=== PATIENT | male | born 1950 | race Caucasian/White ===

== ENCOUNTER → 2023-11-24 09:00 | Outpatient (REF) | payer MEDICARE, OTHER, SELFPAY | LOC: DHSLP 09:00 | PROVIDERS: ATTENDING PHYSICIAN Internal Medicine; FAMILY PHYSICIAN Family Medicine | DX: G47.33 Obstructive sleep apnea (adult) (pediatric) (principal) | CPT/HCPCS: 95800 ==

== ENCOUNTER → 2024-01-29 07:04 | Outpatient (REF) | payer MEDICARE, OTHER, SELFPAY ==
[2024-01-29 08:02] LABS: Protein/creatinine Ratio 0.3; Urine Protein 16 mg/dl
[2024-01-29 08:32] LABS: Albumin 4.2 g/dl (3.5-5.0); Blood Urea Nitrogen 33 mg/dl (9-20); Calcium 9.5 mg/dl (8.4-10.2); Carbon Dioxide 21 mmol/L (22-30); Chloride 107 mmol/L (98-107); Glucose 98 mg/dl (70-99); Potassium 4.8 mmol/L (3.5-5.1); Sodium 136 mmol/L (135-145); eGFR 26.63
[2024-01-30 12:14] LABS: Intact PTH 80.5 pg/ml (13.6-85.8)
== END ==
LOC: REG 07:04
PROVIDERS: ATTENDING PHYSICIAN Internal Medicine; FAMILY PHYSICIAN Family Medicine
DX: N18.4 Chronic kidney disease, stage 4 (severe) (principal); I10 Essential (primary) hypertension; E87.5 Hyperkalemia; N25.81 Secondary hyperparathyroidism of renal origin
CPT/HCPCS: 36415; 80069; 82570; 83970; 84156

== ENCOUNTER → 2024-04-22 10:20 | Outpatient (REF) | payer MEDICARE, OTHER, SELFPAY ==
[2024-04-22 11:59] LABS: Albumin 4.2 g/dl (3.5-5.0); Blood Urea Nitrogen 46 mg/dl (9-20); Calcium 9.6 mg/dl (8.4-10.2); Carbon Dioxide 19 mmol/L (22-30); Chloride 106 mmol/L (98-107); Glucose 111 mg/dl (70-99); Phosphorus 4.5 mg/dl (2.5-4.5); Potassium 5.3 mmol/L (3.5-5.1); Sodium 135 mmol/L (135-145); eGFR 24.28
[2024-04-23 21:55] LABS: Angiotensin-1-converting Enzym 40 U/L (16-85)
[2024-04-24 02:38] LABS: Vitamin D 1,25 Dihydroxy 31.7 pg/mL (19.9-79.3)
== END ==
LOC: REG 10:20
PROVIDERS: ATTENDING PHYSICIAN Internal Medicine; FAMILY PHYSICIAN Family Medicine
DX: N18.4 Chronic kidney disease, stage 4 (severe) (principal); E67.3 Hypervitaminosis D
CPT/HCPCS: 36415; 80069; 82164; 82306; 82652

== ENCOUNTER → 2024-07-12 12:03 | Outpatient (REF) | payer MEDICARE, OTHER, SELFPAY ==
[2024-07-12 12:48] LABS: Hematocrit 37.8 % (39.0-52.0); Hemoglobin 12.7 g/dL (13.0-18.0); Mean Corp Hgb Conc. 33.6 g/dL (33.0-37.0); Mean Corpuscular Volume 92.2 fL (80.0-94.0); Platelet Count 292 10^3/uL (130-400); Red Cell Dist. Width 14.4 % (11.5-14.5); White Blood Cell Count 6.7 10^3/uL (4.8-10.8)
[2024-07-12 13:00] LABS: Albumin 4.4 g/dl (3.5-5.0); Blood Urea Nitrogen 31 mg/dl (9-20); Calcium 9.8 mg/dl (8.4-10.2); Carbon Dioxide 22 mmol/L (22-30); Chloride 102 mmol/L (98-107); Glucose 98 mg/dl (70-99); Phosphorus 3.6 mg/dl (2.5-4.5); Potassium 4.7 mmol/L (3.5-5.1); Sodium 138 mmol/L (135-145)
[2024-07-12 15:10] LABS: Urine Protein 23 mg/dl (0-12)
[2024-07-14 11:00] LABS: Intact PTH 102.3 pg/ml (13.6-85.8)
== END ==
LOC: REG 12:03
PROVIDERS: ATTENDING PHYSICIAN Internal Medicine; FAMILY PHYSICIAN Family Medicine
DX: E67.3 Hypervitaminosis D (principal); N18.4 Chronic kidney disease, stage 4 (severe)
CPT/HCPCS: 36415; 80069; 82570; 83519; 83970; 84156; 85027

== ENCOUNTER → 2024-08-23 13:52 | Outpatient (REF) | payer MEDICARE, OTHER, SELFPAY ==
[2024-08-23 15:23] LABS: Albumin 4.3 g/dl (3.5-5.0); Blood Urea Nitrogen 44 mg/dl (9-20); Calcium 9.6 mg/dl (8.4-10.2); Carbon Dioxide 22 mmol/L (22-30); Chloride 104 mmol/L (98-107); Glucose 100 mg/dl (70-99); Phosphorus 4.3 mg/dl (2.5-4.5); Potassium 4.9 mmol/L (3.5-5.1); Sodium 141 mmol/L (135-145)
== END ==
LOC: REG 13:52
PROVIDERS: ATTENDING PHYSICIAN Internal Medicine; FAMILY PHYSICIAN Family Medicine
DX: N18.4 Chronic kidney disease, stage 4 (severe) (principal); I10 Essential (primary) hypertension
CPT/HCPCS: 36415; 80069

== ENCOUNTER → 2024-09-29 17:03 | Outpatient (REF) | payer MEDICARE, OTHER, SELFPAY | LOC: RAD 17:03 | PROVIDERS: ATTENDING PHYSICIAN Internal Medicine; FAMILY PHYSICIAN Family Medicine | DX: N18.4 Chronic kidney disease, stage 4 (severe) (principal) | CPT/HCPCS: 76770 ==

== ENCOUNTER → 2024-12-01 11:12 | Outpatient (REF) | payer MEDICARE, OTHER, SELFPAY ==
[2024-12-01 13:02] LABS: Albumin 4.3 g/dl (3.5-5.0); Blood Urea Nitrogen 43 mg/dl (9-20); Calcium 9.4 mg/dl (8.4-10.2); Carbon Dioxide 20 mmol/L (22-30); Chloride 103 mmol/L (98-107); Glucose 95 mg/dl (70-99); Phosphorus 4.6 mg/dl (2.5-4.5); Potassium 5.1 mmol/L (3.5-5.1); Sodium 136 mmol/L (135-145)
[2024-12-03 04:22] LABS: Vitamin D 1,25 Dihydroxy 26.1 pg/mL (19.9-79.3)
== END ==
LOC: REG 11:12
PROVIDERS: ATTENDING PHYSICIAN Internal Medicine; FAMILY PHYSICIAN Family Medicine
DX: N25.81 Secondary hyperparathyroidism of renal origin (principal); E67.3 Hypervitaminosis D
CPT/HCPCS: 36415; 80069; 82306; 82652; 83519

== ENCOUNTER → 2025-05-31 14:01 | Outpatient (REF) | payer MEDICARE, OTHER, SELFPAY ==
[2025-05-31 15:31] LABS: Hematocrit 38.6 % (39.0-52.0); Hemoglobin 12.9 g/dL (13.0-18.0); Mean Corp Hgb Conc. 33.4 g/dL (33.0-37.0); Mean Corpuscular Volume 91.5 fL (80.0-94.0); Platelet Count 325 10^3/uL (130-400); Red Cell Dist. Width 14.1 % (11.5-14.5)
[2025-05-31 15:49] LABS: Urine Character Clear (Clear)
[2025-05-31 16:07] LABS: Albumin 4.5 g/dl (3.5-5.0); Blood Urea Nitrogen 50 mg/dl (9-20); Calcium 9.7 mg/dl (8.4-10.2); Carbon Dioxide 20 mmol/L (22-30); Chloride 110 mmol/L (98-107); Glucose 94 mg/dl (70-99); Potassium 5.1 mmol/L (3.5-5.1); Sodium 138 mmol/L (135-145); eGFR 19.68
[2025-05-31 16:11] LABS: Urine Red Blood Cell 0-2 /HPF (0-2); Urine White Cell 16-20 /HPF (0-5)
== END ==
LOC: REG 14:01
PROVIDERS: ATTENDING PHYSICIAN Internal Medicine; FAMILY PHYSICIAN Family Medicine
DX: I10 Essential (primary) hypertension (principal); N18.4 Chronic kidney disease, stage 4 (severe)
CPT/HCPCS: 36415; 80069; 81003; 81015; 82570; 84156; 85027

== ENCOUNTER → 2025-08-24 13:28 | Outpatient (REF) | payer MEDICARE, OTHER, SELFPAY ==
[2025-08-24 15:28] LABS: Albumin 4.4 g/dl (3.5-5.0); Blood Urea Nitrogen 49 mg/dl (9-20); Calcium 9.6 mg/dl (8.4-10.2); Carbon Dioxide 21 mmol/L (22-30); Chloride 108 mmol/L (98-107); Glucose 91 mg/dl (70-99); Potassium 5.0 mmol/L (3.5-5.1); Sodium 137 mmol/L (135-145); eGFR 20.44
== END ==
LOC: REG 13:28
PROVIDERS: ATTENDING PHYSICIAN Internal Medicine; FAMILY PHYSICIAN Family Medicine
DX: N18.4 Chronic kidney disease, stage 4 (severe) (principal)
CPT/HCPCS: 36415; 80069